=== PATIENT | male | born 1990 | race Caucasian/White ===

== ENCOUNTER 2017-05-02 13:15 | Emergency (ER) | payer OTHER ==
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
--- NOTE | 2017-05-05 09:03 | CR ---
Foot Comp Min 3V Lt INDICATION: injury,swollen COMPARISON: None FINDINGS: 3 views. There is widening of the intermetatarsal space proximally at the second and thi rd metatarsals on the oblique view. No definite fractures seen. Remainder negative. IMPRESSION: Widened intermetatarsal space second and third metatarsals. Lisfranc injury possible. CT would be helpful if symptoms persist.
== END 2017-05-02 15:55 | disposition home or self-care (01) ==
LOC: JP.ED 13:15
DX: S92.212A Displaced fracture of cuboid bone of left foot, initial encounter for closed fracture (principal); V49.9XXA Car occupant (driver) (passenger) injured in unspecified traffic accident, initial encounter
CPT/HCPCS: 73630-26-LT; 73630-LT; 73700-LT; 99284-25